=== PATIENT | female | born 1935 | race Hispanic/Latino ===

== ENCOUNTER 2024-01-19 13:30 | Inpatient (IN) | payer MEDICARE, MEDICAID ==
[2024-01-19 15:39] LABS: #Monocytes 0.4 10x3/uL (0.0-1.1); #Neutrophils 5.2 10x3/uL (1.5-8.4); %Basophils 0.3 % (0.0-2.0); %Eosinophils 0.3 % (0.0-6.0); %Lymphocytes 10.9 % (18.0-47.0); %Monocytes 6.5 % (0.0-10.0); %Neutrophils 81.7 % (40.0-75.0); Hematocrit 29.9 % (34.9-44.5); Hemoglobin 9.8 g/dL (12.0-15.5); Mean Corpuscular HGB CONC 32.8 g/dL (32.0-36.0); Mean Corpuscular Hemoglobin 29.7 pg (27.0-33.0); Mean Corpuscular Volume 90.6 fl (81.6-98.3); Mean Platelet Volume 9.7 fl (7.4-10.4); Platelet Count 184 10x3/uL (150-450); RBC Distribution Width 19.9 % (11.5-14.5); White Blood Cell (WBC) Count 6.3 10x3/uL (3.5-10.5)
[2024-01-19 18:52] LABS: Platelet Adequacy Comment PLT clumps seen-ADEQ; Platelet Clumps SLIGHT
[2024-01-19 18:56] LABS: Anisocytosis SLIGHT = 6-15 cells (100X) (0-5/hpf); Hypochromia MODERATE=16-30 cells (100X) (0-5/hpf); Microcytosis SLIGHT = 6-15 cells (100X) (0-5/hpf); Ovalocytes SLIGHT = 2-5 cells (100X) (0-1/hpf); Poikilocytosis SLIGHT = 6-15 cells (100X) (0-5/hpf); Tear Drops SLIGHT = 2-5 cells (100X) (0-1/hpf)
[2024-01-19 19:10] LABS: ALT (SGPT) 12 U/L (8-55); AST (SGOT) 26 U/L (5-34); Albumin 2.1 g/dL (3.4-4.8); Alkaline Phosphatase 120 U/L (40-110); Anion Gap 13 mmol/L (10-20); BUN (Urea Nitrogen) 6 mg/dL (9.8-20.1); Bilirubin, Total 0.3 mg/dL (0.2-1.2); Calc. Creatinine Clearance 0 mL/min (70-130); Calcium 7.2 mg/dL (7.8-10.44); Carbon Dioxide 30 mmol/L (23-31); Chloride 98 mmol/L (98-107); Estimated GFR 24; Globulin 2.7 g/dL (2.4-3.5); Glucose 125 mg/dL (83-110); Lipase 6 U/L (8-78); Magnesium 1.6 mg/dL (1.6-2.6); Protein, Total 4.8 g/dL (5.8-8.1); Sodium 138 mmol/L (136-145)
[2024-01-19 19:12] LABS: Troponin I 0.026 ng/mL (< 0.028)
[2024-01-19 21:04] VITALS: BMI 28.3
[2024-01-19] MEDS ORDERED: Aspirin Chewable 81 MG TAB ONE (22:12)
[2024-01-19] MEDS ORDERED: Potassium Chloride 20 MEQ (100 mL) BAG ONE (22:12)
[2024-01-19] MEDS: Aspirin 81 mg Enteric Coated Tablet PO SCH (22:34)
[2024-01-19] MEDS: Heparin 5,000 UNITS/ML VIAL SC SCH (22:34)
[2024-01-19] MEDS: Potassium Chloride 20 MEQ in Premix 1 BAG IVPB SCH (22:35)
[2024-01-19] MEDS: Dextrose 10% in Water 1,000 ML IV SCH (23:04)
[2024-01-20 02:42] LABS: #Eosinphils 0.1 10x3/uL (0.0-0.5); #Monocytes 0.5 10x3/uL (0.0-1.1); %Basophils 0.3 % (0.0-2.0); %Eosinophils 2.3 % (0.0-6.0); %Lymphocytes 24.3 % (18.0-47.0); %Monocytes 8.4 % (0.0-10.0); %Neutrophils 64.5 % (40.0-75.0); Hematocrit 23.2 % (34.9-44.5); Hemoglobin 7.8 g/dL (12.0-15.5); Mean Corpuscular HGB CONC 33.6 g/dL (32.0-36.0); Mean Corpuscular Hemoglobin 30.2 pg (27.0-33.0); Mean Corpuscular Volume 89.9 fl (81.6-98.3); Mean Platelet Volume 9.7 fl (7.4-10.4); Platelet Count 233 10x3/uL (150-450); RBC Distribution Width 19.9 % (11.5-14.5); Red Blood Cell (RBC) Count 2.58 10x6/uL (3.90-5.03); White Blood Cell (WBC) Count 6.2 10x3/uL (3.5-10.5)
[2024-01-20 03:22] LABS: Anion Gap 12 mmol/L (10-20); BUN (Urea Nitrogen) 7 mg/dL (9.8-20.1); Calc. Creatinine Clearance 19 mL/min (70-130); Calcium 7.1 mg/dL (7.8-10.44); Carbon Dioxide 31 mmol/L (23-31); Chloride 98 mmol/L (98-107); Estimated GFR 21; Glucose 108 mg/dL (83-110); Magnesium 1.6 mg/dL (1.6-2.6); Potassium 3.5 mmol/L (3.5-5.1); Sodium 137 mmol/L (136-145)
[2024-01-20 09:51] VITALS: BP 134/58; TEMP 99.9
[2024-01-20] MEDS: Aspirin 81 mg Enteric Coated Tablet PO SCH (15:20)
== END 2024-01-20 16:58 | disposition home or self-care (01) | DRG 637 ==
LOC: CSHERS 13:30 → CSHERHOLD 19:57 → CSHTELE 01-20 09:36
PROVIDERS: ADMIT Family Medicine; ATTEND Internal Medicine
DX: E11.649 Type 2 diabetes mellitus with hypoglycemia without coma (principal); G93.41 Metabolic encephalopathy; I12.0 Hypertensive chronic kidney disease with stage 5 chronic kidney disease or end stage renal disease; N18.6 End stage renal disease; E11.22 Type 2 diabetes mellitus with diabetic chronic kidney disease; I25.10 Atherosclerotic heart disease of native coronary artery without angina pectoris; E78.5 Hyperlipidemia, unspecified; E87.6 Hypokalemia; E87.70 Fluid overload, unspecified; D64.9 Anemia, unspecified; G30.9 Alzheimer's disease, unspecified; F02.80 Dementia in other diseases classified elsewhere, unspecified severity, without behavioral disturbance, psychotic disturbance, mood disturbance, and anxiety; Z79.4 Long term (current) use of insulin; Z51.5 Encounter for palliative care; Z79.899 Other long term (current) drug therapy; Z89.611 Acquired absence of right leg above knee; Z98.890 Other specified postprocedural states; Z82.49 Family history of ischemic heart disease and other diseases of the circulatory system; Z99.2 Dependence on renal dialysis; Z95.1 Presence of aortocoronary bypass graft; Z95.5 Presence of coronary angioplasty implant and graft; Z83.3 Family history of diabetes mellitus
CPT/HCPCS: 36415; 36416; 70450; 71045; 80048; 80053; 83690; 83735; 83880; 84484; 85025; 93005; 96360; 96361; J1644; J3480